=== PATIENT | male | born 1995 | race Caucasian/White ===

== ENCOUNTER 2019-10-14 23:44 | Emergency (ER) | payer OTHER | END 2019-10-15 02:31 | disposition home or self-care (01) | LOC: ERS 23:44 | DX: K64.9 Unspecified hemorrhoids (principal); F32.9 Major depressive disorder, single episode, unspecified; Z79.899 Other long term (current) drug therapy | CPT/HCPCS: 99283 ==

== ENCOUNTER 2020-07-22 17:51 | Inpatient (IN) | payer OTHER ==
[2020-07-22] MEDS ORDERED: Ibuprofen 800 MG TAB ONE (18:09)
[2020-07-22] MEDS ORDERED: Acetaminophen 500 MG TAB ONE (18:09)
[2020-07-22 20:10] LABS: #Eosinphils 0.1 thou/uL (0.0-0.7); #Lymphocytes 0.9 thou/uL (1.20-3.40); #Monocytes 0.9 thou/uL (0.11-0.59); #Neutrophils 9.6 thou/uL (1.40-6.50); %Basophils 0.2 % (0.0-1.0); %Eosinophils 0.5 % (0.0-10.0); %Lymphocytes 7.8 % (21.0-51.0); %Neutrophils 83.5 % (42.0-75.0); Hemoglobin 14.6 g/dL (14.0-18.0); Mean Corpuscular HGB CONC 33.8 g/dL (32.0-36.0); Mean Corpuscular Hemoglobin 28.7 pg (27.0-31.0); Mean Platelet Volume 8.4 fL (7.4-10.4); Platelet Count 251 thou/uL (130-400); RBC Distribution Width 12.2 % (11.5-14.5); Red Blood Cell (RBC) Count 5.09 mill/uL (4.70-6.10); White Blood Cell (WBC) Count 11.5 thou/uL (4.8-10.8)
[2020-07-22 20:39] LABS: ALT (SGPT) 9 U/L (8-55); AST (SGOT) 11 U/L (5-34); Albumin 4.2 g/dL (3.5-5.0); Alkaline Phosphatase 86 U/L (40-110); Anion Gap 15 mmol/L (10-20); BUN (Urea Nitrogen) 14 mg/dL (8.9-20.6); Calc. Creatinine Clearance 0 mL/min (70-130); Carbon Dioxide 21 mmol/L (22-29); Chloride 103 mmol/L (98-107); Estimated GFR-MDRD Greater than 90; Globulin 3.6 g/dL (2.4-3.5); Glucose 168 mg/dL (70-105); Potassium 3.6 mmol/L (3.5-5.1); Protein, Total 7.8 g/dL (6.0-8.3); Sodium 135 mmol/L (136-145)
--- NOTE | 2020-07-22 20:44 | RAD ---
PORTABLE CHEST: 07/22/20 PROVIDED CLINICAL HISTORY: Fever and headache. FINDINGS: Comparison is made with the study dated 07/15/17. Dextrocardia is redemonstrated. Median sternotomy changes and nerve stimulator wires overlying the ch est are redemonstrated. No focal consolidation, pleural fluid or pneumothorax apparent. IMPRESSION: No evidence for an acute cardiopulmonary process. POS: [facility]
[2020-07-22 21:01] LABS: Bacteria/HPF 4+ HPF (None Seen); Bilirubin Negative (Negative); Blood, Urine Negative (Negative); Clarity Turbid (Clear); Glucose, Urine (Dipstick) 50 mg/dL (Negative); Ketone, Urine Negative (Negative); Leukocyte 500 Leu/uL (Negative); Nitrite 1+ (Negative); Protein, Urine (Dipstick) 20 mg/dL (Neg-Trace); RBC/HPF 0-3 HPF (0-3); Renal Epithelial 0-3 HPF (None Seen); Specific Gravity, Urine 1.018 (1.002-1.036); Squamous Epithelial None Seen HPF (0-3); Urobilinogen Normal mg/dL (Less than 2); WBC/HPF Greater than 50 HPF (0-3)
[2020-07-22] MEDS ORDERED: Vancomycin 1 GM/200 ML BAG ONE (21:05)
[2020-07-22] MEDS ORDERED: Cefepime 2 GM VIAL ONE (21:05)
[2020-07-22 23:08] LABS: Lactic Acid 0.9 mmol/L (0.5-2.2)
--- NOTE | 2020-07-22 23:19 | PDOC.FPRHP ---
- History of Present Illness Chief Complaint: Fever, stomach ache, headache History of Present Illness: Patient is a 24 year old female who presented to the ED for low-grade fever, abdominal pain, and headache. He reports that the headache and abdominal pain began last night and that he began running a low grad fever earlier today. He reports that when he first took his temperature it was 100.3 but read 101 later in the day. He did not take any medication to help with the fever. He also reports some lower abdominal pain. Per the patient and his mother, he uses a straight cath, is incontinent at time, and has had multiple UTIs. The patient also reports that he struggles with constipation, but reports a soft BM earlier today. ED Course: Dirty UA, elevated WBC, tachycardic, tachypneic, elevated LA in ED --> IV vancomycin & cefepime, 2L of NS, ibuprofen, and tylenol. 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 denies: weight/appetite/sleep changes Eyes: denies: eye pain, vision changes ENT: denies: nasal congestion, rhinorrhea Respiratory: denies: cough, congestion, shortness of breath Cardiovascular: denies: chest pain, edema Gastrointestinal: reports: constipation, abdominal pain. denies: nausea, vomiting Genitourinary: reports: incontinence. denies: dysuria Skin: denies: rashes, lesions Musculoskeletal: denies: pain, tenderness Neurological: denies: numbness, seizure Psychological: denies: anxiety, depression - Vital signs BP: 120/73 HR: 100 RR: Tmax: 98.9 Pox: 95% on RA Wt: 61 kg - Physical Exam Constitutional: NAD, awake, alert and oriented HEENT: normocephalic and atraumatic, grossly normal vision, grossly normal hearing Neck: supple, FROM -Chest: Midline scar Heart: no edema -Heart: Dextrocardia, systolic murmur heard best over right sternal border Lungs: CTAB, no respiratory distress, good air movement Abdomen: soft, non-tender, bowel sounds present -Musculoskeletal: bilateral club foot Neurological: no focal deficit, CN II-XII intact Skin: no rash/lesions, no jaundice Heme/Lymphatic: no unusual bruising or bleeding, no purpura, no petechia Psychiatric: normal mood and affect, good judgment and insight FMR H&P: Results - Labs Result Diagrams: 07/22/20 20:00 07/22/20 20:00 Lab results: WBC 11.5 thou/uL (4.8-10.8) H 07/22/20 20:00 Hgb 14.6 g/dL (14.0-18.0) 07/22/20 20:00 Hct 43.3 % (42.0-52.0) 07/22/20 20:00 MCV 85.0 fL (78.0-98.0) 07/22/20 20:00 Plt Count 251 thou/uL (130-400) 07/22/20 20:00 Neutrophils % 83.5 % (42.0-75.0) H 07/22/20 20:00 Sodium 135 mmol/L (136-145) L 07/22/20 20:00 Potassium 3.6 mmol/L (3.5-5.1) 07/22/20 20:00 Chloride 103 mmol/L (98-107) 07/22/20 20:00 Carbon Dioxide 21 mmol/L (22-29) L 07/22/20 20:00 BUN 14 mg/dL (8.9-20.6) 07/22/20 20:00 Creatinine 0.96 mg/dL (0.7-1.3) 07/22/20 20:00 Glucose 168 mg/dL (70-105) H 07/22/20 20:00 Lactic Acid 0.9 mmol/L (0.5-2.2) 07/22/20 22:43 Calcium 9.0 mg/dL (7.8-10.44) 07/22/20 20:00 Total Bilirubin 1.0 mg/dL (0.2-1.2) 07/22/20 20:00 AST 11 U/L (5-34) 07/22/20 20:00 ALT 9 U/L (8-55) 07/22/20 20:00 Alkaline Phosphatase 86 U/L (40-110) 07/22/20 20:00 Serum Total Protein 7.8 g/dL (6.0-8.3) 07/22/20 20:00 Albumin 4.2 g/dL (3.5-5.0) 07/22/20 20:00 Urine Ketones Negative mg/dL (Negative) 07/22/20 20: Urine Blood Negative (Negative) 07/22/20: Urine Nitrite 1+ (Negative) A 07/22/20:22 Ur Leukocyte Esterase 500 Shade/uL (Negative) A 07/22/20 20:22 Urine RBC 0-3 HPF (0-3) 07/22/20 20:22 Urine WBC Greater than 50 HPF (0-3) A 07/22/20 20:22 Ur Squamous Epith Cells None Seen HPF (0-3) 07/22/20 20:22 Urine Bacteria 4+ HPF (None Seen) A 07/22/20 20:22 - Radiology Interpretation Chest x-ray Additional comment: No acute cardiopulmonary process FMR H&P: A/P - Plan 24 yo man with PMH of spina bifida, neurogenic bladder, and admitted for sepsis 2/2 to uti Sepsis 2/2 to UTI - SIRs criteria: Tachycardic, tachypneic, elevated WBC on arrival - UA: 1+ nitrite, 500 LE, >50 WBC, 4+ bacteria - s/p braun, cefepime, 2L NS, ibuprofen, and tylenol in ED - will continue on vanc (07/22) and cefepime (07/22) - urine cx and blood cx pending - LA: 2.7 > 0.9 - Procal: 0.07, will trend - mIVF of LR @ 100 mls/hr Neurogenic bladder - will continue home oxybutinin and straight caths Cardiac anomalies s/p pacemaker - MD aware - extensive cardiac history, mother will bring records tomorrow - will continue home aspirin Hydrocephalus s/p BORDER PATROL AGENT shunt - MD aware - consider transfer to Spina bifida - MD aware Paul syndrome - MD aware PCP: Code: Full Diet: Regular Fluids: LR @ 100 mls/hr Dispo: admit to inpatient medical; likely LOS > 48 hrs FMR H&P: Upper Level - Plan Date/Time: 07/22/20 2792 Li Roy, have evaluated this patient and agree with findings/plan as o utlined by advisory internship resident. Pertinent changes/additions are listed here. 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 Reports the CHAMORRO and abdominal pain began yesterday and around ~1400 today he had a temp of 100.3F at home. He checked his temp again later in the evening and it was ~101F so he decided to come to the ER for further evaluation. He reports he is incontinent and cannot sense dysuria but did endorse some pain over his bladder earlier today. Denies any back pain or hematuria. No associated N/V/D but does have some constipation. Has a h/o UTIs given his incontinence. Also, on arrival he was febrile at 100.5F and tachycardic in the 110s. Workup in the ED was notable for an elevated WBC of 11.5 & a dirty cath UA specimen c/w a UTI. He was therefore determined to be septic 2/2 a UTI & was given IV vancomycin & cefepime, 2L of NS, 800mg ibuprofen and 1g tylenol. On evaluation, the patients vitals were all WNLs. His exam was remarkable for a 4/6 systolic flow murmur heard best at the R sternal border. Plan will be to admit him to the medical floor for continued IV abx with vancomycin & cefepime. Will continue mIVFs & monitor strict I&Os. Will obtain a procal & trend. Will get a repeat CBC & CMP in the AM & continue Tylenol & motrin for fever/pain. Will resume home meds for his neurogenic bladder & heart issues. Addendum - Attending - Attending Attestation Date/Time: 07/23/2011 I personally evaluated the patient and discussed the management with Dr. Bronson/Dipak I agree with the History, Examination, Assessment and Plan documented above with any addition or exceptions noted below. 24-year-old male with an extensive past medical history related to Sex-linked recessive genetic condition. Mother is unable to remember what the condition was the time of admission. The result patient has suffered from spina bifida, transposition of the great vessels, hydrocephalus requiring a BORDER PATROL AGENT shunt, pacemaker placement, heart valve graft, and continues to have incontinence of stool and bladder. All of his care has been conducted at [facility] in [place]. He presented today with 1 day history of low-grade fever with highest recorded temperature of 101 Fahrenheit. Also reported some lower abdominal pain today that has been intermittent in nature. Denies other symptoms. Exam was unremarkable with exception of elevated pulse in the low 100s and a fever in the ER of 100.5 Fahrenheit.Evaluation was remarkable for elevated white count 11,000, elevated lactic acid of 2.2 that trended to 0.9, and urinalysis concerning for infection versus colonization. Prior urine analysis was not as cloudy and did not have as large of a leukocyte esterase or WBCs. Prior culture showed Proteus which was pansensitive. Admit inpatient for sepsis secondary to urinary tract infection. We will continue Vancomycin and cefepime due to history of horseshoe kidney and other chronic comorbidities. Blood and urine cultures are pending. We will continue IV fluids At maintenance rate. Chronic medical problems Per advisory internship note. We will consider transfer to [facility] if his blood cultures result positive as he may need additional treatment/intervention as a result of his BORDER PATROL AGENT shunt and pacemaker.
[2020-07-23 00:42] VITALS: BMI 25.0
[2020-07-23] MEDS ORDERED: Senokot S 8.6-50 MG TAB PO PRN (01:41)
[2020-07-23] MEDS ORDERED: Ondansetron ODT 4 MG TAB PO PRN (01:41)
[2020-07-23] MEDS ORDERED: Ondansetron PF 4 MG/2 ML Vial IVP PRN (01:41)
[2020-07-23] MEDS: Lactated Ringer's 1,000 ML IV SCH ×3 (01:50→22:14)
[2020-07-23 06:01] LABS: #Eosinphils 0.2 thou/uL (0.0-0.7); #Lymphocytes 0.9 thou/uL (1.20-3.40); #Monocytes 0.6 thou/uL (0.11-0.59); #Neutrophils 6.6 thou/uL (1.40-6.50); %Basophils 0.4 % (0.0-1.0); %Eosinophils 1.8 % (0.0-10.0); %Monocytes 6.9 % (0.0-10.0); %Neutrophils 79.9 % (42.0-75.0); Hemoglobin 12.9 g/dL (14.0-18.0); Mean Corpuscular HGB CONC 32.2 g/dL (32.0-36.0); Mean Corpuscular Hemoglobin 27.7 pg (27.0-31.0); Mean Platelet Volume 8.5 fL (7.4-10.4); Platelet Count 213 thou/uL (130-400); RBC Distribution Width 12.2 % (11.5-14.5); Red Blood Cell (RBC) Count 4.65 mill/uL (4.70-6.10); White Blood Cell (WBC) Count 8.3 thou/uL (4.8-10.8)
--- NOTE | 2020-07-23 06:03 | PDOC.FM ---
- Subjective Subjective: Pt resting comfortably in bed this AM. No acute events overnight. States that he is feeling better this AM compared to yesterday. Has been afebrile overnight, VSS. States that he is not currently experiencing any pain. Has had UTIs in the past, cannot remember when he had his last one but he states that he has been "colonized" and is not surprised that he gets urinary infections. Denies ever having any MDRO infections. - Objective Vital Signs & Weight: Vital Signs (12 hours) Temp Pulse Resp BP Pulse Ox 07/23/20 00:40 97.6 F 95 16 118/77 95 07/23/20 00:30 95 Weight Weight 60.963 kg Result Diagrams: 07/23/20 05:34 07/23/20 05:34 Phys Exam - Physical Examination Constitutional: NAD HEENT: PERRLA Neck: no nodes Respiratory: no wheezing Cardiovascular: RRR heart sounds auscultated over right chest, diastolic murmur heard Gastrointestinal: soft, non-tender Musculoskeletal: no edema, pulses present Neurological: non-focal, moves all 4 limbs Lymphatic: no nodes Psychiatric: normal affect, A&O x 3 Skin: no rash, normal turgor, cap refill <2 seconds Dx/Plan - Plan Plan: 24 yo male with PMH of 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 Sepsis 2/2 to UTI - SIRs criteria: Tachycardic, tachypneic, elevated WBC on arrival - UA: 1+ nitrite, 500 LE, >50 WBC, 4+ bacteria - s/p braun, cefepime, 2L NS, ibuprofen, and tylenol in ED - will continue on vanc (07/22) and cefepime (07/22) - LA: 2.7 > 0.9 - Procal: 0.07 on admission - WBC 11.5 on admission-->8.3 today 07/23 - mIVF of LR @ 100 mls/hr - blood clx negative prelim neg so far - urine cx pending Neurogenic bladder - will continue home oxybutinin and straight caths Cardiac anomalies s/p pacemaker - MD aware - extensive cardiac history, mother will bring records tomorrow - will continue home aspirin Hydrocephalus s/p FLEET DISPATCH MANAGER shunt - MD aware - consider transfer to due to multiple comorbidities (hydrocephalus s/p FLEET DISPATCH MANAGER shunt, cardiac anomalies s/p pacemaker), consider transfer to [facility] in [place] if patient's blood cultures are positive. Spina bifida - MD aware Paul retraction syndrome - MD aware PCP: [place] Code: Full Diet: Regular Fluids: LR @ 100 mls/hr Dispo: admit to inpatient medical; likely LOS > 48 hrs. continue abx, will watch and await final blood clx and urine clx. Addendum - Attending - Attending Attestation Date/Time: 07/23/20 3257 I personally evaluated the patient and discussed the management with Dr. Souza. I agree with the History, Examination, Assessment and Plan documented above with any addition or exceptions noted below.
[2020-07-23 06:17] LABS: ALT (SGPT) 8 U/L (8-55); AST (SGOT) 11 U/L (5-34); Albumin 3.3 g/dL (3.5-5.0); Alkaline Phosphatase 64 U/L (40-110); Anion Gap 11 mmol/L (10-20); BUN (Urea Nitrogen) 14 mg/dL (8.9-20.6); Bilirubin, Total 0.8 mg/dL (0.2-1.2); Calc. Creatinine Clearance 130 mL/min (70-130); Calcium 7.9 mg/dL (7.8-10.44); Carbon Dioxide 19 mmol/L (22-29); Chloride 109 mmol/L (98-107); Estimated GFR-MDRD Greater than 90; Globulin 2.7 g/dL (2.4-3.5); Glucose 105 mg/dL (70-105); Potassium 3.9 mmol/L (3.5-5.1); Sodium 135 mmol/L (136-145)
[2020-07-23] MEDS: Aspirin 81 mg Enteric Coated Tablet PO SCH (10:05)
[2020-07-23] MEDS: Oxybutynin 5 MG TAB PO SCH ×2 (10:05→20:28)
[2020-07-23] MEDS: Enoxaparin Sodium 40 MG/0.4 ML SYRINGE SC SCH (10:05)
[2020-07-23] MEDS: Vancomycin 1 GM in Premix Bag 1 BAG IVPB SCH ×2 (10:06→22:15)
[2020-07-23] MEDS: Cefepime 2 GM in Sodium Chloride 0.9% 100 ML IVPB SCH ×3 (10:08→20:27)
[2020-07-23 12:02] LABS: SARS-CoV-2 MS2 Positive; SARS-CoV-2 N Gene Negative; SARS-CoV-2 S Gene Negative; SARS-CoV-2 by NAA Not Detected (NotDetected); SARS-CoV-2 orf1ab Negative
[2020-07-23] MEDS: Acetaminophen 325 MG TAB PO PRN (14:46)
[2020-07-23] MEDS ORDERED: Chloraseptic Spray 180 ml Bottle PO PRN (21:37)
[2020-07-24] MEDS: Acetaminophen 325 MG TAB PO PRN ×2 (01:28→09:00)
--- NOTE | 2020-07-24 06:06 | PDOC.FM ---
- Subjective Subjective: Pt resting comfortably in bed this AM. No acute events overnight. Yesterday afternoon had some itching and his face had turned during administration of vancomycin, with a lower rate of infusion, his symptoms had dissappated however. Apparently this had happened to him before while he was in the ED. Has a mild sore throat today but denies fever/chills, runny nose. - Objective Vital Signs & Weight: Vital Signs (12 hours) Temp Pulse Resp BP BP Pulse Ox 07/24/20 04:00 97.5 F L 86 16 99/66 98 07/24/20 00:00 98.5 F 80 20 103/58 L 100 07/23/20 22:00 98.5 F 96 18 110/70 97 07/23/20 20:00 97 Weight Admit Weight 60.963 kg Weight 60.963 kg I&O: 07/22/20 07/23/20 07/24/20 06:59 06:59 06:59 Intake Total 660 2065 Output Total 100 750 Balance 560 1315 Result Diagrams: 07/24/20 05:57 07/24/20 05:57 Phys Exam - Physical Examination Constitutional: NAD HEENT: PERRLA Neck: no nodes Respiratory: no wheezing, no rales, no rhonchi, clear to auscultation bilateral Cardiovascular: RRR, no rub diastolic murmur heard, heart sounds ausculatated on R Gastrointestinal: soft, non-tender, no distention Musculoskeletal: no edema, pulses present Neurological: non-focal, normal sensation, moves all 4 limbs Lymphatic: no nodes Psychiatric: normal affect, A&O x 3 Skin: no rash, normal turgor, cap refill <2 seconds Dx/Plan - Plan Plan: 24 yo male with PMH of 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 Sepsis 2/2 to UTI - SIRs criteria: Tachycardic, tachypneic, elevated WBC on arrival - UA: 1+ nitrite, 500 LE, >50 WBC, 4+ bacteria - s/p braun, cefepime, 2L NS, ibuprofen, and tylenol in ED - will continue on vanc (07/22) and cefepime (07/22) - LA: 2.7 > 0.9 - Procal: 0.07 on admission - WBC 11.5 on admission-->8.3 - mIVF of LR @ 100 mls/hr - blood clx negative prelim neg so far - urine clx so far has grown gram neg rods CFU > 100K, isolation of pathogens pend Neurogenic bladder - will continue home oxybutinin and straight caths Cardiac anomalies s/p pacemaker - aware - extensive cardiac history, mother will bring records tomorrow - will continue home aspirin Hydrocephalus s/p HAIR BOILER OPERATOR shunt - aware - consider transfer to due to multiple comorbidities (hydrocephalus s/p HAIR BOILER OPERATOR shunt, cardiac anomalies s/p pacemaker), consider transfer to [facility] in [place] if patient's blood cultures are positive. - in discussion with mother yesterday, she states that pt does not have a neurologist that patient sees, currently in the process of establishing care with one in [place]. Dr. Alfonso Barlow is the name of neurosurgeon who did initial placement of shunt 22 years ago, however he has moved to [place]. he does have a clay puddler Dr. Kelly at [facility]. mom has records for us to read, these were reviewed - most recent shuntogram was here in 2017 which was unremarkable Spina bifida - MD aware Paul retraction syndrome - MD aware Code: Full Diet: Regular Fluids: LR @ 100 mls/hr PCP: [place] Dispo: admit to inpatient medical; likely LOS > 48 hrs. continue abx, will watch and await final blood clx and urine clx. Addendum - Attending - Attending Attestation Date/Time: 07/24/20 0912 I personally evaluated the patient and discussed the management with Dr. Souza. I agree with the History, Examination, Assessment and Plan documented above with any addition or exceptions noted below.
[2020-07-24 06:24] LABS: #Eosinphils 0.2 thou/uL (0.0-0.7); #Lymphocytes 1.1 thou/uL (1.20-3.40); #Monocytes 0.6 thou/uL (0.11-0.59); #Neutrophils 5.1 thou/uL (1.40-6.50); %Basophils 0.3 % (0.0-1.0); %Eosinophils 2.2 % (0.0-10.0); %Lymphocytes 15.4 % (21.0-51.0); %Monocytes 8.9 % (0.0-10.0); %Neutrophils 73.1 % (42.0-75.0); Mean Corpuscular HGB CONC 32.9 g/dL (32.0-36.0); Mean Corpuscular Hemoglobin 28.6 pg (27.0-31.0); Mean Corpuscular Volume 86.7 fL (78.0-98.0); Mean Platelet Volume 8.6 fL (7.4-10.4); Platelet Count 189 thou/uL (130-400); Red Blood Cell (RBC) Count 4.21 mill/uL (4.70-6.10); White Blood Cell (WBC) Count 6.9 thou/uL (4.8-10.8)
[2020-07-24 06:43] LABS: ALT (SGPT) 9 U/L (8-55); AST (SGOT) 10 U/L (5-34); Albumin 3.4 g/dL (3.5-5.0); Alkaline Phosphatase 58 U/L (40-110); Anion Gap 12 mmol/L (10-20); BUN (Urea Nitrogen) 8 mg/dL (8.9-20.6); Bilirubin, Total 0.6 mg/dL (0.2-1.2); Calc. Creatinine Clearance 141 mL/min (70-130); Carbon Dioxide 22 mmol/L (22-29); Chloride 105 mmol/L (98-107); Estimated GFR-MDRD Greater than 90; Globulin 2.6 g/dL (2.4-3.5); Glucose 93 mg/dL (70-105); Potassium 3.8 mmol/L (3.5-5.1); Sodium 135 mmol/L (136-145)
[2020-07-24] MEDS ORDERED: Cepastat Lozenges 1 LOZ PO PRN (08:41)
[2020-07-24] MEDS: Lactated Ringer's 1,000 ML IV SCH ×3 (08:58→22:15)
[2020-07-24] MEDS: Cefepime 2 GM in Sodium Chloride 0.9% 100 ML IVPB SCH ×2 (08:59→20:53)
[2020-07-24] MEDS: Aspirin 81 mg Enteric Coated Tablet PO SCH (08:59)
[2020-07-24] MEDS: Oxybutynin 5 MG TAB PO SCH ×2 (09:00→20:54)
[2020-07-24] MEDS: Enoxaparin Sodium 40 MG/0.4 ML SYRINGE SC SCH (09:00)
[2020-07-24 09:50] LABS: Vancomycin, Trough 15.1 ug/mL
[2020-07-24] MEDS: Vancomycin 1 GM in Premix Bag 1 BAG IVPB SCH ×2 (10:08→22:15)
[2020-07-25 05:28] LABS: #Eosinphils 0.2 thou/uL (0.0-0.7); #Lymphocytes 0.8 thou/uL (1.20-3.40); #Monocytes 0.5 thou/uL (0.11-0.59); #Neutrophils 4.3 thou/uL (1.40-6.50); %Eosinophils 3.3 % (0.0-10.0); %Monocytes 9.2 % (0.0-10.0); %Neutrophils 74.6 % (42.0-75.0); Mean Corpuscular HGB CONC 33.5 g/dL (32.0-36.0); Mean Corpuscular Hemoglobin 29.2 pg (27.0-31.0); Mean Corpuscular Volume 87.3 fL (78.0-98.0); Mean Platelet Volume 8.6 fL (7.4-10.4); Platelet Count 182 thou/uL (130-400); RBC Distribution Width 11.9 % (11.5-14.5); White Blood Cell (WBC) Count 5.7 thou/uL (4.8-10.8)
[2020-07-25 05:52] LABS: ALT (SGPT) 7 U/L (8-55); AST (SGOT) 7 U/L (5-34); Albumin 3.4 g/dL (3.5-5.0); Alkaline Phosphatase 58 U/L (40-110); Anion Gap 13 mmol/L (10-20); BUN (Urea Nitrogen) 9 mg/dL (8.9-20.6); Bilirubin, Total 0.4 mg/dL (0.2-1.2); Calc. Creatinine Clearance 137 mL/min (70-130); Calcium 8.3 mg/dL (7.8-10.44); Carbon Dioxide 22 mmol/L (22-29); Chloride 103 mmol/L (98-107); Estimated GFR-MDRD Greater than 90; Globulin 2.9 g/dL (2.4-3.5); Glucose 117 mg/dL (70-105); Potassium 4.1 mmol/L (3.5-5.1); Protein, Total 6.3 g/dL (6.0-8.3); Sodium 134 mmol/L (136-145)
--- NOTE | 2020-07-25 05:59 | PDOC.FM ---
- Subjective Subjective: Pt resting comfortably in bed this AM. No acute events overnight. States that he is not in any pain at the moment. No sore throat this AM. - Objective Vital Signs & Weight: Vital Signs (12 hours) Temp Pulse Resp BP Pulse Ox 07/25/20 00:20 99 F 80 17 101/56 L 98 07/24/20 20:45 99 07/24/20 20:00 99.0 F 86 20 117/72 99 07/24/20 18:03 98.1 F 75 18 105/67 98 Weight Admit Weight 60.963 kg Weight 60.963 kg I&O: 07/23/20 07/24/20 07/25/20 06:59 06:59 06:59 Intake Total 660 2065 1850 Output Total 525 938 3884 Balance 560 1315 750 Result Diagrams: 07/25/20 05:17 07/25/20 05:17 Phys Exam - Physical Examination Constitutional: NAD HEENT: PERRLA Neck: no nodes Respiratory: no wheezing, no rales, no rhonchi, clear to auscultation bilateral Cardiovascular: RRR, no rub diastolic murmur noted. 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 Sepsis 2/2 to UTI - SIRs criteria: Tachycardic, tachypneic, elevated WBC on arrival - UA: 1+ nitrite, 500 LE, >50 WBC, 4+ bacteria - s/p braun, cefepime, 2L NS, ibuprofen, and tylenol in ED - will continue on vanc (07/22) and cefepime (07/22) - LA: 2.7 > 0.9 - Procal: 0.07 on admission - WBC 11.5 on admission-->8.3 - mIVF of LR @ 100 mls/hr - blood clx negative - urine clx so far has grown gram neg rods CFU > 100K, Klebsiella pneumonia and proteus Neurogenic bladder - will continue home oxybutinin and straight caths Cardiac anomalies s/p pacemaker - MD aware - extensive cardiac history, mother will bring records tomorrow - will continue home aspirin Hydrocephalus s/p OFFICE EMPLOYEE shunt - aware - consider transfer to due to multiple comorbidities (hydrocephalus s/p OFFICE EMPLOYEE shunt, cardiac anomalies s/p pacemaker), consider transfer to [facility] in [place] if patient's blood cultures are positive. - in discussion with mother yesterday, she states that pt does not have a neurologist that patient sees, currently in the process of establishing care with one in [place]. Dr. Alfonso Barlow is the name of neurosurgeon who did initial placement of shunt 22 years ago, however he has moved to [place]. he does have a executive wellness programs director Dr. Kelly at [facility]. mom has records for us to read, these were reviewed - most recent shuntogram was here in 2017 which was unremarkable Spina bifida - MD aware Paul retraction syndrome - MD aware Code: Full Diet: Regular Fluids: LR @ 100 mls/hr PCP: [place] Dispo: admit to inpatient medical; likely LOS > 48 hrs. blood clx neg. switch to PO abx and likely d/c today. Addendum - Attending - Attending Attestation Date/Time: 07/25/20 1823 I personally evaluated the patient and discussed the management with Dr. Souza. I agree with the History, Examination, Assessment and Plan documented above with any addition or exceptions noted below.
[2020-07-25] MEDS: Oxybutynin 5 MG TAB PO SCH (09:07)
[2020-07-25] MEDS: Aspirin 81 mg Enteric Coated Tablet PO SCH (09:07)
[2020-07-25] MEDS: Enoxaparin Sodium 40 MG/0.4 ML SYRINGE SC SCH (09:07)
[2020-07-25] MEDS: Cefepime 2 GM in Sodium Chloride 0.9% 100 ML IVPB SCH (09:22)
[2020-07-25] MEDS: Vancomycin 1 GM in Premix Bag 1 BAG IVPB SCH (10:09)
[2020-07-25 11:14] VITALS: BP 112/51; TEMP 98.2
[2020-07-25] MEDS: Lactated Ringer's 1,000 ML IV SCH (12:48)
--- NOTE | 2020-07-26 03:54 | DIS ---
DATE OF ADMISSION: 07/22/2020 DATE OF DISCHARGE: 07/25/2020 ADMITTING ATTENDING: Ruddy Olivarez MD DISCHARGE ATTENDING: Nam Evangelista MD CONSULT: None. PROCEDURES: Chest x-ray done on 07/22 showed no evidence for acute cardiopulmonary process. PRIMARY DIAGNOSIS: Sepsis, secondary to urinary tract infection. SECONDARY DIAGNOSES: 1. Neurogenic bladder. 2. Cardiac anomalies, status post pacemaker. 3. Hydrocephalus, status post DEVIL DOG shunt. 4. Spina bifida. 5. Paul retraction syndrome. DISCHARGE MEDICATIONS: 1. Oxybutynin 5 mg p.o. b.i.d. 2. Aspirin 81. 3. Omnicef 300 mg p.o. q.12 hours for four days. DISCONTINUED MEDICATIONS: None. HISTORY OF PRESENT ILLNESS/HOSPITAL COURSE: This is a 24-year-old male, who presented to the emergency department for low-grade fever, abdominal pain, and headache. He reported that the headache and abdominal pain started the night before admission and he began to run a low-grade fever earlier on the day after admission. He reported that when he first took his temperature, it was 103, but later read 101. He did not take any medication to help with the fever. He also reported some lower abdominal pain. Per the patient and his mother, he uses straight cath due to being incontinent at times and has had multiple UTIs in the past. The patient also reported that he has trouble with constipation, but reported soft bowel movements earlier in the day. It was found that patient's urinalysis showed leukocytosis. He was also presenting with tachycardia, tachypnea, and elevated lactic acid. He was started on IV vancomycin and cefepime initially. Blood and urine cultures were taken. Chest x-ray was done with the findings shown above. Due to the nature of the patient's past medical history and the presence of a DEVIL DOG shunt, he was monitored closely during his hospital admission. Patient did not become afebrile throughout his stay. His initial WBC was 11.5, but trended downwards the following days. The rest of the labs were unremarkable. Patient was continued on IV cefepime. Initial urinary cultures resulted with Klebsiella pneumoniae and Proteus mirabilis. These bacteria were resistant to a number of oral antibiotics. Oral antibiotics were started. Patient's blood cultures came back finally negative on 07/25. It was recommended to patient's Mom and patient that patient followup and establish with a neurosurgeon or neurologist who would be able to see him due to his hydrocephalus history and DEVIL DOG shunt. DISPOSITION: Stable. DISCHARGE INSTRUCTIONS: Location: Home. Diet: Regular. Activity: As tolerated. Followup: Follow up within 1 to 2 weeks with primary care physician Dr. Borjas. Recommended that if patient continue to see specialists at [facility] in [place] that patient can follow up or establish care with [facility]. Job ID[facility] [id number] [facility]ENTER[facility]van
== END 2020-07-25 15:20 | disposition home or self-care (01) | DRG 872 ==
LOC: ERS 17:51 → T4-B 23:45
PROVIDERS: ADMIT Family Medicine; ATTEND Family Medicine
DX: A41.89 Other specified sepsis (principal); N39.0 Urinary tract infection, site not specified; Q05.4 Unspecified spina bifida with hydrocephalus; N31.9 Neuromuscular dysfunction of bladder, unspecified; K59.00 Constipation, unspecified; Z20.828 Contact with and (suspected) exposure to other viral communicable diseases; H50.812 Duane's syndrome, left eye; H50.811 Duane's syndrome, right eye; F32.9 Major depressive disorder, single episode, unspecified; Q24.9 Congenital malformation of heart, unspecified; Z95.0 Presence of cardiac pacemaker; Z98.2 Presence of cerebrospinal fluid drainage device; Z87.440 Personal history of urinary (tract) infections; Z91.040 Latex allergy status
CPT/HCPCS: 36415; 71045; 80053; 80202; 81003; 81015; 83605; 84145; 85025; 87040; 87077; 87086; 87186; 87635; 87804; 96361; 96365; 96367; J0692; J1650; J3370; J3490; U0003

== ENCOUNTER 2023-07-03 21:39 | Emergency (ER) | payer OTHER ==
[2023-07-03 22:17] LABS: #Eosinphils 0.1 thou/uL (0.0-0.7); #Monocytes 0.5 thou/uL (0.11-0.59); #Neutrophils 4.5 thou/uL (1.40-6.50); %Basophils 0.3 % (0.0-1.0); %Eosinophils 1.9 % (0.0-10.0); %Lymphocytes 18.5 % (21.0-51.0); %Monocytes 7.2 % (0.0-10.0); %Neutrophils 71.6 % (42.0-75.0); Hematocrit 45.6 % (42.0-52.0); Hemoglobin 15.3 g/dL (14.0-18.0); Mean Corpuscular HGB CONC 33.6 g/dL (32.0-36.0); Mean Corpuscular Hemoglobin 28.1 pg (27.0-31.0); Mean Corpuscular Volume 83.7 fl (78.0-98.0); Mean Platelet Volume 11.7 fL (7.4-10.4); Platelet Count 243 10x3/uL (130-400); RBC Distribution Width 14.1 % (11.5-14.5); Red Blood Cell (RBC) Count 5.45 mill/uL (4.70-6.10); White Blood Cell (WBC) Count 6.2 10x3/uL (4.8-10.8)
[2023-07-03 22:39] LABS: ALT (SGPT) 15 U/L (8-55); AST (SGOT) 16 U/L (5-34); Albumin 4.5 g/dL (3.5-5.0); Alkaline Phosphatase 90 U/L (40-110); Anion Gap 12 mmol/L (10-20); BUN (Urea Nitrogen) 11 mg/dL (8.9-20.6); Bilirubin, Total 0.8 mg/dL (0.2-1.2); Calc. Creatinine Clearance 0 mL/min (70-130); Calcium 9.4 mg/dL (7.8-10.44); Carbon Dioxide 23 mmol/L (22-29); Chloride 107 mmol/L (98-107); Estimated GFR 105; Globulin 3.5 g/dL (2.4-3.5); Glucose 96 mg/dL (70-105); Potassium 3.8 mmol/L (3.5-5.1); Sodium 138 mmol/L (136-145)
[2023-07-03 22:43] LABS: Troponin I Less than 0.010 ng/mL (< 0.028)
== END 2023-07-04 01:20 | disposition home or self-care (01) ==
LOC: ERS 21:39
DX: R00.0 Tachycardia, unspecified (principal); I48.91 Unspecified atrial fibrillation; Z79.82 Long term (current) use of aspirin
CPT/HCPCS: 36415; 71045; 80053; 84484; 85025; 85379; 93005

== ENCOUNTER 2024-05-13 04:31 | Emergency (ER) | payer OTHER ==
[2024-05-13 05:19] LABS: #Basophils 0.03 10x3/uL (0.0-0.2); %Basophils 0.4 % (0.0-1.0); %Eosinophils 2.1 % (0.0-10.0); %Lymphocytes 14.3 % (21.0-51.0); %Monocytes 5.5 % (0.0-10.0); %Neutrophils 77.2 % (42.0-75.0); Hematocrit 46.5 % (42.0-52.0); Hemoglobin 15.4 g/dL (14.0-18.0); Mean Corpuscular HGB CONC 33.1 g/dL (32.0-36.0); Mean Corpuscular Hemoglobin 29.3 pg (27.0-31.0); Mean Corpuscular Volume 88.4 fL (78.0-98.0); Platelet Count 218 10x3/uL (130-400); RBC Distribution Width 13.2 % (11.5-14.5); Red Blood Cell (RBC) Count 5.26 mill/uL (4.70-6.10)
[2024-05-13 05:44] LABS: ALT (SGPT) 15 U/L (8-55); AST (SGOT) 19 U/L (5-34); Albumin 4.3 g/dL (3.5-5.0); Alkaline Phosphatase 84 U/L (40-110); Anion Gap 13 mmol/L (10-20); BUN (Urea Nitrogen) 21 mg/dL (8.9-20.6); Calc. Creatinine Clearance 0 mL/min (70-130); Carbon Dioxide 20 mmol/L (22-29); Chloride 105 mmol/L (98-107); Estimated GFR 126; Globulin 3.4 g/dL (2.4-3.5); Glucose 105 mg/dL (70-105); Lipase 22 U/L (8-78); Potassium 3.8 mmol/L (3.5-5.1); Protein, Total 7.7 g/dL (6.0-8.3); Sodium 134 mmol/L (136-145)
[2024-05-13 05:51] LABS: Bilirubin Negative (Negative); Blood, Urine Trace (Negative); CAUTI Indications for Culture Pelvic or flank pain; Clarity Turbid (Clear); Glucose, Urine (Dipstick) Normal (Negative); Ketone, Urine Negative (Negative); Leukocyte 500 Leu/uL (Negative); Nitrite Negative (Negative); Protein, Urine (Dipstick) Negative (Neg-Trace); Specific Gravity, Urine 1.017 (1.002-1.036); Squamous Epithelial None Seen HPF (0-3); Urobilinogen Normal mg/dL (Less than 2); WBC/HPF Greater than 50 HPF (0-3); pH, Urine 6.5 (5.0-9.0)
[2024-05-13 05:55] LABS: Bacteria/HPF 1+ HPF (None Seen)
[2024-05-13 05:56] LABS: Urine Culture Reflex Yes Yes
[2024-05-13 06:28] LABS: Bilirubin, Total 0.8 mg/dL (0.2-1.2); Calcium 9.8 mg/dL (7.8-10.44)
[2024-05-13] MEDS ORDERED: cefTRIAXone (ROCEPHIN) 2 GM VIAL ONE (07:02)
[2024-05-13] MEDS ORDERED: Iopamidol 370 76% 100 ML VIAL ONE (10:54)
== END 2024-05-13 09:04 | disposition home or self-care (01) ==
LOC: ERS 04:31
DX: R10.31 Right lower quadrant pain (principal); R10.813 Right lower quadrant abdominal tenderness; G91.9 Hydrocephalus, unspecified; Q24.0 Dextrocardia; Z55.6 Problems related to health literacy
CPT/HCPCS: 36415; 51701; 70450; 74177; 75809; 80053; 81001; 83690; 85025; 87077; 87086; 87186; 96365; J0696; Q9967